=== PATIENT | female | born 1980 | race Caucasian/White ===

== ENCOUNTER 2017-11-14 16:59 | Emergency (ER) | payer OTHER ==
[~2017-11-14] VITALS: Ht 157.5 cm; Wt 106.6 kg
[2017-11-14 17:15] VITALS: Ht 157.5 cm; Wt 106.6 kg
[2017-11-14 18:22] LABS: BASOPHIL % 0.6 % (0-2)
[2017-11-14 18:29] LABS: PLATELET COUNT 437 x10^3mcL (130-400); RED CELL DISTRIBUTION WIDTH 16.2 % (11.5-14.5)
[2017-11-14 19:34] LABS: CALCIUM 8.6 mg/dL (8.5-10.1); CARBON DIOXIDE 24.9 mmol/L (21-32); CHLORIDE SERUM 103 mmol/L (98-107); CREATININE SERUM 0.7 mg/dL (0.6-1.0); GFR1 > 60 mL/min; GLUCOSE SERUM 102 mg/dL (74-106); POTASSIUM SERUM 3.9 mmol/L (3.5-5.1); SODIUM SERUM 139 mmol/L (136-145)
[2017-11-14 19:41] LABS: ALKALINE PHOSPHATASE 101 U/L (46-116); ALT/SGPT 29 U/L (14-59); AST/SGOT 23 U/L (15-37); BILIRUBIN TOTAL 0.18 mg/dL (0.20-1.00); TOTAL PROTEIN, SERUM 7.5 g/dL (6.4-8.2)
[2017-11-14 19:42] LABS: ALBUMIN 3.3 g/dL (3.4-5.0)
[2017-11-14 20:22] VITALS: BP 130/64
== END 2017-11-14 20:22 | disposition home or self-care (01) ==
LOC: ED 16:59
PROVIDERS: Emergency Medicine
DX: M94.0 Chondrocostal junction syndrome [Tietze] (principal); D50.9 Iron deficiency anemia, unspecified
CPT/HCPCS: J1885; Q0092